=== PATIENT | female | born 1970 | race Caucasian/White ===

== ENCOUNTER → 2016-10-04 | Outpatient (CLI) | payer OTHER ==
--- NOTE | 2016-10-05 01:20 | REP ---
Clinical: Emphysema. Technique: PA and lateral. Comparison: None. Findings: Chronic interstitial changes related to emphysema are noted along with trace basilar fibroatelectatic changes and bronchiectasis. No discrete focal consolidation, effusion, or pneumothorax. Mediastinum and cardiac silhouette are normal. Calcified hilar lymph nodes suggest prior granulomatous disease. Skeletal structures are intact. Impression: Diffuse chronic changes related to emphysema as well as on a granulomas disease suggested. Signed by Rolo Weiner MD 10/05/2016 01:11 A
== END ==
LOC: M SMT 09:11
PROVIDERS: ATTEND Internal Medicine Pulmonary Disease
DX: J43.2 Centrilobular emphysema (principal)

== ENCOUNTER → 2016-10-07 | Outpatient (REF) | payer OTHER | LOC: M LAB REF 16:58 | PROVIDERS: ATTEND Internal Medicine Pulmonary Disease | DX: J43.2 Centrilobular emphysema (principal) ==

== ENCOUNTER → 2018-01-10 | Outpatient (REF) | payer OTHER ==
[2018-01-10 14:14] LABS: BLOOD UREA NITROGEN 10 MG/DL (7-18)
[2018-01-10 14:14] LABS: CREATININE FOR GFR 0.68 MG/DL (0.55-1.30); GLOMERULAR FILTRATION RATE > 60.0 (>58)
== END ==
LOC: M LABDRAW1 12:14
DX: M25.521 Pain in right elbow (principal)

== ENCOUNTER → 2018-03-01 | Outpatient (REF) | payer OTHER ==
[2018-03-01 18:03] LABS: CRYSTALS, BODY FLUID CHOLESTEROL (NONE SEEN); SOURCE, BODY FLUID CRYSTALS RT ELBOW
== END ==
LOC: M LAB REF 17:16
DX: M70.21 Olecranon bursitis, right elbow (principal)
CPT/HCPCS: 89060

== ENCOUNTER → 2018-04-20 | Outpatient (REF) | payer OTHER | LOC: M LAB REF 11:54 | PROVIDERS: ATTEND Internal Medicine Pulmonary Disease | DX: R05 Cough (principal) ==

== ENCOUNTER 2019-02-26 16:45 | Emergency (ER) | payer OTHER ==
[~2019-02-26] VITALS: Ht 144.8 cm; Wt 77.3 kg
[2019-02-26] MEDS ORDERED: LOSA50TA88 PO (18:07)
[2019-02-26] MEDS ORDERED: BREO1INH PO (18:07)
[2019-02-26] MEDS ORDERED: TIOT18INH INH (18:07)
[2019-02-26] MEDS ORDERED: METH10TA PO (18:07)
[2019-02-26] MEDS ORDERED: VENTAER INH (18:07)
[2019-02-26] MEDS ORDERED: XYZASOL2 PO (18:07)
[2019-02-26] MEDS ORDERED: DOXYCYCLINE HYCLATE 100 MG TAB PO ONE (18:45)
[2019-02-26 19:39] LABS: BASO % 0.2 % (0.0-1.0); EOS % 0.2 % (0.0-3.0); HEMATOCRIT 44.5 % (36.0-47.0); HEMOGLOBIN 15.2 g/dl (12.0-15.5); LYMPH # 1.4 10^3/uL (1.5-5.0); LYMPH % 8.4 % (24.0-44.0); MEAN CORPUSCULAR HEMOGLOBIN 30.9 pg (27.0-33.0); MEAN CORPUSCULAR HGB CONC 34.2 g/dl (32.0-36.5); MEAN CORPUSCULAR VOLUME 90.4 fl (80.0-96.0); MONO # 1.2 10^3/uL (0.0-0.8); MONO % 7.2 % (0.0-5.0); NEUTROPHILS % 83.5 % (36.0-66.0); PLATELET COUNT, AUTOMATED 185 10^3/uL (150-450); RED BLOOD COUNT 4.92 10^6/uL (4.00-5.40); WHITE BLOOD COUNT 16.8 10^3/uL (4.0-10.0)
[2019-02-26] MEDS ORDERED: ACETAMINOPHEN 325 MG TAB PO ONE (19:45)
[2019-02-26] MEDS ORDERED: ONDANSETRON 4 MG ORAL DISINTEGRATING TAB (Q0162 PER 1MG) PO ONE (19:45)
[2019-02-26 19:59] LABS: BLOOD UREA NITROGEN 11 MG/DL (7-18); CALCIUM LEVEL 8.8 MG/DL (8.5-10.1); CARBON DIOXIDE LEVEL 27 MEQ/L (21-32); CHLORIDE LEVEL 101 MEQ/L (98-107); CREATININE FOR GFR 0.74 MG/DL (0.55-1.30); GLOMERULAR FILTRATION RATE > 60.0 (>51); GLUCOSE, FASTING 117 MG/DL (70-100); POTASSIUM SERUM 4.3 MEQ/L (3.5-5.1); SODIUM LEVEL 136 MEQ/L (136-145)
[2019-02-26] MEDS ORDERED: ZITHTAB PO (20:50)
[2019-02-26] MEDS ORDERED: BENZ200C70 PO (20:50)
[2019-02-26] MEDS ORDERED: MUCI600T31 PO (20:52)
[2019-02-26 20:54] VITALS: BP 164/82
--- NOTE | 2019-02-27 05:46 | ECGEPIP ---
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 Order Number: [id number] Reading MD: Juan Carlos Gomez Measurements Intervals [place] Rate: 94 P: 24 VA: 123 QRS: 69 QRSD: 77 T: 41 QT: 354 QTc: 444 Interpretive Statements SINUS RHYTHM BENIGN EARLY REPOLARIZATION NO PRIORS FOR COMPARISON Electronically Signed on 02-27-2019 5:46:14 EST by Juan Carlos Gomez
--- NOTE | 2019-02-27 12:34 | REP ---
The ribs for views: There is no right rib fracture or other rib abnormality. There is no focal or diffuse pleural thickening. PA chest: Comparison is the PA and lateral chest of 10/04/2016. There is no pneumothorax, hemothorax or pulmonary contusion. There is no pleural effusion. Lung morrissey are clear except for focal increased density inferomedially in the right lung, unchanged from the prior study, likely representing chronic fibrotic change. Impression: Chronic fibrotic change inferomedially in the right lung. Otherwise, negative PA chest. Electronically Signed by Man Hernandez MD 02/27/2019 12:25 P
== END 2019-02-26 21:05 | disposition home or self-care (01) ==
LOC: M ED 16:45
DX: J44.1 Chronic obstructive pulmonary disease with (acute) exacerbation (principal); R50.9 Fever, unspecified; R05 Cough; Z99.81 Dependence on supplemental oxygen; E05.90 Thyrotoxicosis, unspecified without thyrotoxic crisis or storm; I50.9 Heart failure, unspecified; Z88.0 Allergy status to penicillin; Z87.891 Personal history of nicotine dependence
CPT/HCPCS: 71101; 80048; 85025; 87486; 87581; 87633; 87798; 93005; 99284; Q0162

== ENCOUNTER → 2019-03-05 | Outpatient (CLI) | payer OTHER ==
[~2019-03-05] MED LIST: BENZ200C70 PO; BREO1INH PO; LOSA50TA88 PO; METH10TA PO; MUCI600T31 PO; TIOT18INH INH; VENTAER INH; XYZASOL2 PO; ZITHTAB PO
[2019-03-05 18:29] LABS: BLOOD UREA NITROGEN 9 MG/DL (7-18); CREATININE FOR GFR 0.69 MG/DL (0.55-1.30); GLOMERULAR FILTRATION RATE > 60.0 (>51)
== END ==
LOC: M SMT 15:45
PROVIDERS: ATTEND Internal Medicine Pulmonary Disease
DX: R04.2 Hemoptysis (principal)

== ENCOUNTER → 2019-03-07 | Outpatient (CLI) | payer OTHER ==
[~2019-03-07] MED LIST changes: +ISOVUE-370 76% 100ML VIAL (Q9967) As Ordered ONE
--- NOTE | 2019-03-08 01:14 | REP ---
Clinical: Hemoptysis Technique: Axial angiographic images obtained from the thoracic inlet to the upper abdomen using 100 ml Isovue 370 intravenous contrast material. Coronal and sagittal re-formations and MIP images obtained. Findings: Pulmonary arterial vasculature is normal and there is no evidence for pulmonary embolus. Thoracic aorta demonstrates mild atherosclerotic changes without aneurysm or dissection. Heart and pericardium appear normal. There is a small to moderate right pleural effusion along with consolidation/partial collapse to the right middle lobe. Underlying chronic interstitial changes are suggested throughout the bilateral lung morrissey. No pneumothorax. Presumed reactive adenopathy noted in the mediastinum. Surrounding musculoskeletal structures are intact. Adrenal glands normal. Impression: 1. Small/moderate right pleural effusion consolidation/partial collapse to the right middle lobe. Follow-up to resolution required. 2. Mild chronic scattered interstitial changes are suggested and may be reevaluated on follow-up examination. 3. Normal thoracic aorta and pulmonary vasculature. Electronically Signed by Rolo Weiner MD 03/08/2019 01:06 A
== END ==
LOC: M RAD 18:11
PROVIDERS: ATTEND Internal Medicine Pulmonary Disease
DX: J90 Pleural effusion, not elsewhere classified (principal); J98.11 Atelectasis
CPT/HCPCS: 71275; Q9967

== ENCOUNTER → 2019-04-08 | Outpatient (CLI) | payer OTHER ==
[~2019-04-08] MED LIST changes: -ISOVUE-370 76% 100ML VIAL (Q9967) As Ordered ONE
--- NOTE | 2019-04-08 14:08 | REP ---
CT CHEST WITHOUT IV CONTRAST: CT chest performed without IV contrast. Sagittal and coronal reconstruction images are performed. Comparison is made with prior study 03/07/2019. The previously noted right middle lobe infiltrate has improved but there is still mild residual peripheral consolidation in the anterior aspect of the right middle lobe. There are also some minor ill-defined parenchymal opacities in the adjacent right lower lobe likely some minor atelectasis or infiltrate. Previously noted right pleural effusion has resolved. No infiltrate is seen in the left lung. No significantly enlarged mediastinal or axillary lymph nodes are seen. The heart is normal in size. There is no pericardial effusion. There are mild degenerative changes of the spine. IMPRESSION: Improved consolidative infiltrate right middle lobe with mild residual anteriorly. There is some minor ill-defined atelectasis or infiltrate in the right lower lobe. The right pleural effusion has resolved. Recommend continued followup to resolution. Electronically Signed by Man Timmons MD 04/09/2019 03:55 P
== END ==
LOC: M RAD 12:37
PROVIDERS: ATTEND Internal Medicine Pulmonary Disease
DX: J18.9 Pneumonia, unspecified organism (principal); R04.2 Hemoptysis

== ENCOUNTER → 2019-07-22 | Outpatient (CLI) | payer OTHER ==
--- NOTE | 2019-07-22 16:27 | REP ---
CT CHEST WITHOUT IV CONTRAST: CT chest performed without IV contrast compared to prior study of 04/08/2019. Previously noted right middle lobe consolidation has again improved and there is mild residual ill-defined parenchymal opacity at that location. Smaller infiltrative opacity in the posterior segment of the right lower lobe has improved but there is new mild adjacent patchy opacity in the right lower lobe. Very small patch of infiltrative opacity is seen in the left upper lobe. Small similar appearing ill-defined infiltrative opacity is seen in the left lower lobe. There is mild bronchiectasis bilaterally. Heart is not enlarged. There is mild atherosclerotic calcification of the thoracic aorta without aneurysm. There is no pleural or pericardial effusion. Subcentimeter mediastinal lymph nodes are again seen. There are degenerative changes of the spine. Visualized upper abdominal structures are grossly unchanged. IMPRESSION: Improved right middle and lower lobe infiltrates with mild residual. Very small new ill-defined infiltrative opacity in the right lower lobe, left lower lobe and left upper lobe. The findings suggest waxing and waning inflammatory infiltrates. Electronically Signed by Man Timmons MD 07/22/2019 04:51 P
== END ==
LOC: M RAD 13:01
PROVIDERS: ATTEND Internal Medicine Pulmonary Disease
DX: R91.8 Other nonspecific abnormal finding of lung field (principal)

== ENCOUNTER → 2019-09-16 | Outpatient (CLI) | payer OTHER | LOC: M LABSMTC 10:26 | PROVIDERS: ATTEND Orthopaedic Surgery | DX: Z03.818 Encounter for observation for suspected exposure to other biological agents ruled out (principal); Z11.59 Encounter for screening for other viral diseases ==

== ENCOUNTER → 2019-09-18 | Outpatient (CLI) | payer OTHER ==
[2019-09-18 12:29] LABS: HEMATOCRIT 44.5 % (36.0-47.0); HEMOGLOBIN 15.5 g/dl (12.0-15.5); PLATELET COUNT, AUTOMATED 190 10^3/uL (150-450); WHITE BLOOD COUNT 7.2 10^3/uL (4.0-10.0)
[2019-09-18 12:35] LABS: BLOOD UREA NITROGEN 10 MG/DL (7-18); CALCIUM LEVEL 8.7 MG/DL (8.5-10.1); CARBON DIOXIDE LEVEL 26 MEQ/L (21-32); CHLORIDE LEVEL 110 MEQ/L (98-107); GLOMERULAR FILTRATION RATE > 60.0 (>51); GLUCOSE, FASTING 84 MG/DL (70-100); POTASSIUM SERUM 3.9 MEQ/L (3.5-5.1); SODIUM LEVEL 142 MEQ/L (136-145)
== END ==
LOC: M WUC 10:18
PROVIDERS: ATTEND Physician Assistant
DX: Z01.812 Encounter for preprocedural laboratory examination (principal); Z79.899 Other long term (current) drug therapy

== ENCOUNTER → 2019-09-19 | Outpatient (REF) | payer OTHER | LOC: M LAB REF 10:52 | PROVIDERS: ATTEND Orthopaedic Surgery | DX: L72.0 Epidermal cyst (principal) ==

== ENCOUNTER → 2020-02-03 | Outpatient (CLI) | payer OTHER ==
--- NOTE | 2020-02-06 13:41 | REP ---
NONCONTRAST CHEST CT CLINICAL: Follow-up abnormal lung findings. COMPARISON: 07/22/2019, 03/07/2019. 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 The previously noted waxing and waning subtle areas of infiltrate have resolved and the current examination demonstrates no area of consolidation/infiltrate. No effusion or pneumothorax identified. No significant nodule or mass lesion. Tracheobronchial tree is patent. No obvious axillary, hilar, or mediastinal adenopathy. Atherosclerotic changes to the thoracic aorta and coronary arteries noted without aortic aneurysm or cardiomegaly. No pericardial effusion. Visualized thyroid glands relatively normal. Surrounding musculoskeletal structures are intact. Limited upper abdomen demonstrates normal bilateral adrenal glands. IMPRESSION: Stable chronic emphysematous disease. Previously noted waxing and waning infiltrates have resolved, and the current examination is clear and without acute infiltrate. No acute mediastinal or pleural parenchymal process otherwise noted. MTDD
== END ==
LOC: M RAD 12:31
PROVIDERS: ATTEND Internal Medicine Pulmonary Disease
DX: R91.8 Other nonspecific abnormal finding of lung field (principal)

== ENCOUNTER → 2021-02-22 | Outpatient (CLI) | payer OTHER ==
--- NOTE | 2021-02-22 15:37 | REP ---
INDICATION: SMOKER. COMPARISON: Multiple the latest 02/03/[address] of the chest TECHNIQUE: Axial noncontrast images from the thoracic inlet to the upper abdomen using low-dose lung screening technique (LDCT). As per the protocol only lung window images were sent to the read station for interpretation. FINDINGS: No new abnormal nodules, masses, or opacities have developed. There is cylindrical bronchiectasis status quo. Grossly, the mediastinum and pulmonary ash are unchanged. Grossly, the imaged upper abdomen and imaged osseous structures are unchanged. IMPRESSION: Lung rads category 1 low-dose screening CT examination of the lungs. There are no abnormal nodules. Yearly screening is recommended as per the revised Fleischner society criteria <Electronically signed by Sj Oates > 02/22/21 [id number]
== END ==
LOC: M RAD 14:44
PROVIDERS: ATTEND Internal Medicine Pulmonary Disease
DX: Z12.2 Encounter for screening for malignant neoplasm of respiratory organs (principal); F17.218 Nicotine dependence, cigarettes, with other nicotine-induced disorders

== ENCOUNTER 2023-08-23 07:57 | Day surgery (SDC) | payer OTHER ==
[~2023-08-23] VITALS: Ht 149.9 cm; Wt 62.8 kg
[2023-08-23] MEDS: CEFUROXIME 1MG/0.1ML INTRACAMERAL INJ As Ordered ONE (06:37)
[~2023-08-23 07:57] MED LIST changes: +AMLO1TAB25 PO; +ASPI81TA26 PO; +D31000CA4 PO; +IPRA2IN INH; +LOSA50TA28 PO; -LOSA50TA88 PO; +MIDAZOLAM INJ 2MG/2ML VIAL As Ordered ONE; +MOME13HF7 INH; +PHENYLEPHRINE 10% OPHTH SOL 5ML OD PRN; +TELM1TAB33 PO; +fentaNYL 100 MCG/2 ML INJECTION As Ordered ONE
[2023-08-23] MEDS: OFLOXACIN 0.3 % (OCUFLOX) OPTH SOL 5ML OD ONE (08:15)
[2023-08-23] MEDS: LIDOCAINE 3.5 % 1ML OPHTH TOPICAL GEL OU ONE (08:30)
[2023-08-23] MEDS: PHENYLEPHRINE 2.5% OPHTH SOL 2ML OD SCH (08:31)
[2023-08-23] MEDS: TROPICAMIDE 1% OPHTH SOLN 15ML OD SCH (08:31)
[2023-08-23] MEDS: ATROPINE SULFATE 1% OPHTH SOLN 2ML BTL OD SCH (08:31)
[2023-08-23] MEDS: LIDOCAINE 1% SDV 5ML VIAL As Ordered ONE (09:09)
[2023-08-23] MEDS: BSS IRRIG/VANCO(10MG)/TOBRA(5MG)/EPINEPH(1:1000-0.5CC)500ML BAG-ORONLY As Ordered ONE (09:09)
[2023-08-23 09:28] VITALS: BP 168/74; TEMP 96.2; O2SAT 95
== END 2023-08-23 09:55 | disposition home or self-care (01) ==
LOC: M SDC 07:57
PROVIDERS: ATTEND Ophthalmology
DX: H25.11 Age-related nuclear cataract, right eye (principal); I10 Essential (primary) hypertension; E05.90 Thyrotoxicosis, unspecified without thyrotoxic crisis or storm; J44.9 Chronic obstructive pulmonary disease, unspecified; Z99.81 Dependence on supplemental oxygen; Z79.899 Other long term (current) drug therapy; Z79.51 Long term (current) use of inhaled steroids; Z88.0 Allergy status to penicillin
CPT/HCPCS: 66984; 92015; J0697; J2250; J3010; V2788

== ENCOUNTER 2023-09-20 07:14 | Day surgery (SDC) | payer OTHER ==
[~2023-09-20] VITALS: Ht 144.8 cm; Wt 63.5 kg
[2023-09-20] MEDS: CEFUROXIME 1MG/0.1ML INTRACAMERAL INJ As Ordered ONE (06:51)
[~2023-09-20 07:14] MED LIST changes: -MIDAZOLAM INJ 2MG/2ML VIAL As Ordered ONE; -PHENYLEPHRINE 10% OPHTH SOL 5ML OD PRN; +PHENYLEPHRINE 10% OPHTH SOL 5ML OS PRN; -fentaNYL 100 MCG/2 ML INJECTION As Ordered ONE
[2023-09-20] MEDS: TROPICAMIDE 1% OPHTH SOLN 15ML OS SCH (09:54)
[2023-09-20] MEDS: PHENYLEPHRINE 2.5% OPHTH SOL 2ML OS SCH (09:54)
[2023-09-20] MEDS: ATROPINE SULFATE 1% OPHTH SOLN 2ML BTL OS SCH (09:54)
[2023-09-20] MEDS: OFLOXACIN 0.3 % (OCUFLOX) OPTH SOL 5ML OS ONE (09:54)
[2023-09-20] MEDS: LIDOCAINE 3.5 % 1ML OPHTH TOPICAL GEL OU ONE (09:54)
[2023-09-20] MEDS ORDERED: MIDAZOLAM INJ 2MG/2ML VIAL As Ordered ONE (10:06)
[2023-09-20] MEDS ORDERED: fentaNYL 100 MCG/2 ML INJECTION As Ordered ONE (10:06)
[2023-09-20] MEDS: MOXIFLOXACIN 0.6MG/0.4ML INTRAOCULAR SYRINGE As Ordered ONE (10:35)
[2023-09-20] MEDS: BSS IRRIG/VANCO(10MG)/TOBRA(5MG)/EPINEPH(1:1000-0.5CC)500ML BAG-ORONLY As Ordered ONE (10:35)
[2023-09-20] MEDS: LIDOCAINE 1% SDV 5ML VIAL As Ordered ONE (10:35)
[2023-09-20 10:45] VITALS: BP 115/56; TEMP 97.6; O2SAT 98
== END 2023-09-20 11:17 | disposition home or self-care (01) ==
LOC: M SDC 07:14
PROVIDERS: ATTEND Ophthalmology
DX: H25.12 Age-related nuclear cataract, left eye (principal); I10 Essential (primary) hypertension; E05.90 Thyrotoxicosis, unspecified without thyrotoxic crisis or storm; J44.9 Chronic obstructive pulmonary disease, unspecified; Z79.82 Long term (current) use of aspirin; Z79.51 Long term (current) use of inhaled steroids; Z79.899 Other long term (current) drug therapy; Z88.0 Allergy status to penicillin
CPT/HCPCS: 66984; 92015; J2250; J3010; V2788

== ENCOUNTER → 2023-11-24 | Outpatient (CLI) | payer OTHER ==
[~2023-11-24] MED LIST changes: -PHENYLEPHRINE 10% OPHTH SOL 5ML OS PRN
== END ==
LOC: M RAD 12:51
PROVIDERS: ATTEND Internal Medicine Pulmonary Disease
DX: J44.1 Chronic obstructive pulmonary disease with (acute) exacerbation (principal)

== ENCOUNTER → 2024-02-26 | Outpatient (REF) | payer OTHER ==
[2024-02-26 18:53] LABS: FREE T4 1.23 NG/DL (0.89-1.76); THYROID STIMULATING HORMONE 1.19 uIU/ML (0.55-4.78)
== END ==
LOC: M LAB REF 17:23
PROVIDERS: ATTEND Internal Medicine Pulmonary Disease
DX: J44.1 Chronic obstructive pulmonary disease with (acute) exacerbation (principal)

== ENCOUNTER → 2024-07-05 | Outpatient (CLI) | payer OTHER ==
[~2024-07-05] MED LIST changes: +METH-1387 PO; -METH10TA PO
== END ==
LOC: M RAD 15:15
PROVIDERS: ATTEND Internal Medicine Pulmonary Disease
DX: Z87.891 Personal history of nicotine dependence (principal); J98.11 Atelectasis; R91.1 Solitary pulmonary nodule

== ENCOUNTER → 2024-08-13 | Outpatient (REF) | payer MEDICARE, OTHER | LOC: M LAB REF 16:46 | PROVIDERS: ATTEND Internal Medicine Pulmonary Disease | DX: J44.1 Chronic obstructive pulmonary disease with (acute) exacerbation (principal) ==

== ENCOUNTER → 2024-09-11 | Outpatient (CLI) | payer MEDICARE, OTHER | LOC: M RAD 13:23 | PROVIDERS: ATTEND Internal Medicine Pulmonary Disease | DX: R91.8 Other nonspecific abnormal finding of lung field (principal) ==